=== PATIENT | male | born 1950 | race Caucasian/White ===

== ENCOUNTER 2022-03-28 10:08 | Emergency (ER) | payer MEDICARE, OTHER ==
[2022-03-28 11:16] LABS: ALT (SGPT) 42 U/L (8-55); AST (SGOT) 40 U/L (5-34); Albumin 3.7 g/dL (3.4-4.8); Alkaline Phosphatase 66 U/L (40-110); BUN (Urea Nitrogen) 81 mg/dL (8.4-25.7); Bilirubin, Total 0.4 mg/dL (0.2-1.2); Calc. Creatinine Clearance 0 mL/min (70-130); Chloride 102 mmol/L (98-107); Estimated GFR 5; Globulin 3.8 g/dL (2.4-3.5); Glucose 174 mg/dL (80-115); Potassium 5.3 mmol/L (3.5-5.1); Protein, Total 7.5 g/dL (5.8-8.1); Sodium 141 mmol/L (136-145)
[2022-03-28 11:18] LABS: Carbon Dioxide Less than 8 mmol/L (23-31)
[2022-03-28 11:19] LABS: #Basophils 0.1 thou/uL (0.0-0.2); #Lymphocytes 5.4 thou/uL (1.20-3.40); #Neutrophils 10.3 thou/uL (1.40-6.50); %Basophils 0.6 % (0.0-1.0); %Eosinophils 0.2 % (0.0-10.0); %Monocytes 6.2 % (0.0-10.0); %Neutrophils 61.1 % (42.0-75.0); Hemoglobin 10.3 g/dL (14.0-18.0); Mean Corpuscular HGB CONC 30.8 g/dL (32.0-36.0); Mean Corpuscular Hemoglobin 31.6 pg (27.0-31.0); Mean Platelet Volume 8.7 fL (7.4-10.4); Platelet Count 152 10x3/uL (130-400); RBC Distribution Width 12.5 % (11.5-14.5); Red Blood Cell (RBC) Count 3.26 mill/uL (4.70-6.10); White Blood Cell (WBC) Count 16.8 10x3/uL (4.8-10.8)
[2022-03-28 11:25] LABS: MDiff Complete? YES; Macrocytosis SLIGHT = 6-15 cells (100X) (0-5/hpf); Platelet Morphology Comment Appears Adequate
[2022-03-28] MEDS ORDERED: CEFAZOLIN 1 GM VIAL ONE (12:27)
[2022-03-28] MEDS ORDERED: Calcium Gluc 4.6 MEQ/10 ML (100 MG/ML) ONE ×2 (12:27→12:30)
[2022-03-28] MEDS ORDERED: Cefepime 1 GM VIAL ONE (12:30)
[2022-03-28] MEDS ORDERED: Albuterol 2.5 MG/0.5 ML NEB ONE (12:34)
[2022-03-28] MEDS ORDERED: Sodium Chloride 0.9% 100 ML ONE (12:59)
== END 2022-03-28 14:14 | disposition short-term general hospital (02) ==
LOC: EDBD → BURERS 10:08
DX: E87.20 Acidosis, unspecified (principal); E87.5 Hyperkalemia; D72.829 Elevated white blood cell count, unspecified; E78.00 Pure hypercholesterolemia, unspecified; E11.9 Type 2 diabetes mellitus without complications; I12.9 Hypertensive chronic kidney disease with stage 1 through stage 4 chronic kidney disease, or unspecified chronic kidney disease; N18.9 Chronic kidney disease, unspecified; F17.200 Nicotine dependence, unspecified, uncomplicated; Z99.2 Dependence on renal dialysis
CPT/HCPCS: 70450; 71045; 74176; 80053; 82962; 83605; 83880; 85025; 87040; 93005; J0610; 36416; 51701; 96361; 96365; 96375; 36415-59; J0690; J0692; J3490; J7611